=== PATIENT | male | born 1950 | race Caucasian/White ===

== ENCOUNTER 2016-06-24 13:46 | Outpatient (RCR) | payer BC ==
[~2016-06-24 13:46] MED LIST: ASPIRIN 32325 MG/TAB PO; NAPROSYN 2250 MG/TAB PO; ZOCOR
== END 2016-06-25 07:52 | disposition home or self-care (01) ==
LOC: WSPT 13:46
DX: M54.5 Low back pain (principal)

== ENCOUNTER 2016-12-02 11:28 | Emergency (ER) | payer BC ==
[~2016-12-02] VITALS: Ht 182.9 cm; Wt 76.4 kg
[2016-12-02 11:33] VITALS: TEMP 97.8
[2016-12-02] MEDS ORDERED: TAMBOCOR 1100 MG/TAB PO (11:39)
[2016-12-02] MEDS ORDERED: SPIRIVA RE2.5 MCG/Ac IH (11:40)
[2016-12-02 11:44] LABS: BASO # 0.1 (0.0-0.2); BASO % 0.5 % (0.0-2.0); EOS # 0.3 (0.0-0.7); EOS % 2.4 % (0-4.0); GRAN # 8.7 (1.4-6.5); GRAN % 71.8 % (42.2-75.2); HEMATOCRIT 42.6 % (42.0-52.0); HEMOGLOBIN 14.7 g/dl (13.5-18.0); LYMPH % 16.3 % (20.0-51.0); MEAN CELL VOLUME 92 fl (80.0-100.0); MEAN CORPUSCULAR HEMOGLOBIN 32 pg (27.0-31.0); MEAN CORPUSCULAR HGB CONC 35 g/dl (33.0-37.0); MEAN PLATELET VOLUME 9.7 fl (7.4-10.4); MONO # 1.1 (0.1-0.6); MONO % 8.7 % (1.7-9.3); PLATELET COUNT 329 K/mm3 (130-400); RED BLOOD COUNT 4.61 M/mm3 (4.20-5.60); REDCELL DISTRIBUTION WIDTH-CV 13.4 % (11.5-14.5); WHITE BLOOD COUNT 12.1 K/mm3 (4.8-10.8)
[2016-12-02 12:06] LABS: ADJUSTED CALCIUM 9.2 mg/dL (8.4-10.2); ALANINE AMINOTRANSFERASE 21 U/L (21-72); ALBUMIN 4.1 gm/dL (3.5-5.0); ALKALINE PHOSPHATASE 103 U/L (50-136); ANION GAP 11 mmol/L (7-16); BILIRUBIN,TOTAL 0.6 mg/dL (0.0-1.0); BLOOD UREA NITROGEN 11 mg/dL (9-20); CALCIUM 9.3 mg/dL (8.4-10.2); CARBON DIOXIDE 26 mmol/L (22-30); CHLORIDE 101 mmol/L (98-107); CREATININE, serum 0.79 mg/dL (0.66-1.25); GLUCOSE 91 mg/dL (74-106); LIPASE 47 U/L (23-300); POTASSIUM 4.2 mmol/L (3.4-5.0); SODIUM 138 mmol/L (137-145); TOTAL PROTEIN 7.5 gm/dL (6.4-8.2)
[2016-12-02 12:18] LABS: B-TYPE NATRIURETIC PEPTIDE 97 pg/mL (0-125); TROPONIN-I < 0.012 ng/mL (0.000-0.034)
[2016-12-02 15:27] VITALS: BP 108/62; PULSE 76
== END 2016-12-02 15:30 | disposition home or self-care (01) ==
LOC: COL.ER 11:28
PROVIDERS: Emergency Medicine
DX: R07.89 Other chest pain (principal); K21.9 Gastro-esophageal reflux disease without esophagitis; E78.5 Hyperlipidemia, unspecified; Z79.82 Long term (current) use of aspirin; Z98.890 Other specified postprocedural states
CPT/HCPCS: J7030

== ENCOUNTER → 2017-01-01 | Outpatient (CLI) | payer BC ==
[~2017-01-01] MED LIST changes: +SPIRIVA RE2.5 MCG/Ac IH; +TAMBOCOR 1100 MG/TAB PO
== END ==
LOC: MHCPAIN 07:57
DX: G89.29 Other chronic pain (principal); M47.817 Spondylosis without myelopathy or radiculopathy, lumbosacral region; M54.16 Radiculopathy, lumbar region; M79.1 Myalgia; M41.9 Scoliosis, unspecified
CPT/HCPCS: G0463

== ENCOUNTER → 2017-03-03 | Outpatient (CLI) | payer BC | LOC: MHCPAIN 10:48 | DX: G89.29 Other chronic pain (principal); M47.27 Other spondylosis with radiculopathy, lumbosacral region; M41.9 Scoliosis, unspecified; Z87.891 Personal history of nicotine dependence; Z79.82 Long term (current) use of aspirin | CPT/HCPCS: G0463 ==

== ENCOUNTER → 2017-04-07 | Outpatient (CLI) | payer BC | LOC: MHCPAIN 08:17 | DX: G89.29 Other chronic pain (principal); M47.27 Other spondylosis with radiculopathy, lumbosacral region; M41.9 Scoliosis, unspecified; M79.1 Myalgia; Z87.891 Personal history of nicotine dependence | CPT/HCPCS: G0463 ==

== ENCOUNTER → 2017-08-26 | Outpatient (CLI) | payer BC | LOC: MHCPAIN 08:01 | DX: G89.29 Other chronic pain (principal); M47.817 Spondylosis without myelopathy or radiculopathy, lumbosacral region; M53.3 Sacrococcygeal disorders, not elsewhere classified; M79.1 Myalgia; M41.9 Scoliosis, unspecified; M48.061 Spinal stenosis, lumbar region without neurogenic claudication | CPT/HCPCS: G0463 ==

== ENCOUNTER → 2018-01-21 | Outpatient (CLI) | payer BC | LOC: MHCPAIN 14:45 | DX: M47.817 Spondylosis without myelopathy or radiculopathy, lumbosacral region (principal); M54.16 Radiculopathy, lumbar region; M53.3 Sacrococcygeal disorders, not elsewhere classified; M79.1 Myalgia; M41.9 Scoliosis, unspecified | CPT/HCPCS: G0463 ==

== ENCOUNTER → 2018-01-27 | Outpatient (CLI) | payer BC | LOC: MHCPAIN 15:38 | DX: M54.12 Radiculopathy, cervical region (principal) | CPT/HCPCS: J1040 ==

== ENCOUNTER 2018-02-09 13:45 | Outpatient (RCR) | payer BC | END 2018-02-16 | disposition home or self-care (01) | LOC: WSPT | DX: M41.9 Scoliosis, unspecified (principal); Z79.82 Long term (current) use of aspirin; Z79.899 Other long term (current) drug therapy ==

== ENCOUNTER → 2018-02-25 | Outpatient (CLI) | payer BC | LOC: MHCPAIN 08:04 | DX: G89.29 Other chronic pain (principal); M47.817 Spondylosis without myelopathy or radiculopathy, lumbosacral region; M54.16 Radiculopathy, lumbar region; M53.3 Sacrococcygeal disorders, not elsewhere classified | CPT/HCPCS: G0463 ==

== ENCOUNTER 2018-03-03 15:30 | Outpatient (RCR) | payer BC | END 2018-05-05 12:24 | disposition home or self-care (01) | LOC: WSPT 15:30 | DX: M54.41 Lumbago with sciatica, right side (principal); M41.9 Scoliosis, unspecified; Z79.2 Long term (current) use of antibiotics; Z79.82 Long term (current) use of aspirin; Z79.899 Other long term (current) drug therapy ==

== ENCOUNTER → 2018-08-19 | Outpatient (CLI) | payer BC | LOC: MHCPAIN 14:14 | DX: G89.29 Other chronic pain (principal); M47.817 Spondylosis without myelopathy or radiculopathy, lumbosacral region; M54.16 Radiculopathy, lumbar region; M53.3 Sacrococcygeal disorders, not elsewhere classified; M41.9 Scoliosis, unspecified | CPT/HCPCS: G0463 ==

== ENCOUNTER → 2018-08-20 | Outpatient (CLI) | payer BC | LOC: MHCPAIN 10:05 | DX: M47.817 Spondylosis without myelopathy or radiculopathy, lumbosacral region (principal); M54.16 Radiculopathy, lumbar region | CPT/HCPCS: J1100; Q9967 ==

== ENCOUNTER → 2018-09-09 | Outpatient (CLI) | payer BC | LOC: MHCPAIN 13:39 | DX: G89.29 Other chronic pain (principal); M47.817 Spondylosis without myelopathy or radiculopathy, lumbosacral region; M54.16 Radiculopathy, lumbar region; M53.3 Sacrococcygeal disorders, not elsewhere classified; M41.9 Scoliosis, unspecified | CPT/HCPCS: G0463 ==

== ENCOUNTER 2018-09-24 10:00 | Outpatient (RCR) | payer BC | END 2018-09-28 | disposition home or self-care (01) | LOC: WSC | DX: M54.16 Radiculopathy, lumbar region (principal); M48.061 Spinal stenosis, lumbar region without neurogenic claudication; M41.85 Other forms of scoliosis, thoracolumbar region ==

== ENCOUNTER → 2018-09-24 | Outpatient (CLI) | payer BC | LOC: MHCPAIN 14:45 | DX: M47.817 Spondylosis without myelopathy or radiculopathy, lumbosacral region (principal); M54.16 Radiculopathy, lumbar region | CPT/HCPCS: J1100; Q9967 ==

== ENCOUNTER → 2018-10-07 | Outpatient (CLI) | payer BC | LOC: MHCPAIN 10:28 | DX: G89.29 Other chronic pain (principal); M47.817 Spondylosis without myelopathy or radiculopathy, lumbosacral region; M54.16 Radiculopathy, lumbar region; M53.3 Sacrococcygeal disorders, not elsewhere classified; M47.814 Spondylosis without myelopathy or radiculopathy, thoracic region | CPT/HCPCS: G0463 ==

== ENCOUNTER 2018-11-03 10:45 | Outpatient (RCR) | payer BC | END 2018-12-28 | disposition still patient (30) | LOC: WSPT | DX: M41.86 Other forms of scoliosis, lumbar region (principal) ==

== ENCOUNTER → 2018-11-18 | Outpatient (CLI) | payer BC | LOC: MHCPAIN 09:37 | DX: G89.29 Other chronic pain (principal); M47.817 Spondylosis without myelopathy or radiculopathy, lumbosacral region; M54.16 Radiculopathy, lumbar region; M53.3 Sacrococcygeal disorders, not elsewhere classified; M41.9 Scoliosis, unspecified | CPT/HCPCS: G0463 ==

== ENCOUNTER → 2018-12-17 | Outpatient (CLI) | payer BC | LOC: MHCPAIN 09:34 | DX: M47.817 Spondylosis without myelopathy or radiculopathy, lumbosacral region (principal); M54.16 Radiculopathy, lumbar region | CPT/HCPCS: Q9967 ==

== ENCOUNTER → 2018-12-23 | Outpatient (CLI) | payer BC | LOC: MHCPAIN 13:20 | DX: G89.29 Other chronic pain (principal); M47.817 Spondylosis without myelopathy or radiculopathy, lumbosacral region; M54.16 Radiculopathy, lumbar region; M53.3 Sacrococcygeal disorders, not elsewhere classified; M41.9 Scoliosis, unspecified | CPT/HCPCS: G0463 ==

== ENCOUNTER 2019-10-28 11:00 | Outpatient (RCR) | payer BC | END 2019-12-15 | disposition still patient (30) | LOC: WSPT | DX: M48.061 Spinal stenosis, lumbar region without neurogenic claudication (principal); Z98.1 Arthrodesis status ==

== ENCOUNTER → 2020-02-16 | Outpatient (CLI) | payer BC | LOC: COL.RAD 09:24 | DX: M48.062 Spinal stenosis, lumbar region with neurogenic claudication (principal); M41.86 Other forms of scoliosis, lumbar region; Z98.1 Arthrodesis status ==

== ENCOUNTER 2020-05-03 09:30 | Emergency (ER) | payer BC ==
[~2020-05-03] VITALS: Ht 182.9 cm; Wt 72.7 kg
[2020-05-03 09:34] VITALS: TEMP 97.6
[2020-05-03 10:44] LABS: BASO # 0.1 (0.0-0.2); BASO % 0.3 % (0.0-2.0); EOS # 0.1 (0.0-0.7); EOS % 0.8 % (0-4.0); GRAN # 13.6 (1.4-6.5); GRAN % 85.6 % (42.2-75.2); HEMATOCRIT 44.1 % (42.0-52.0); HEMOGLOBIN 14.8 g/dl (13.5-18.0); LYMPH # 0.9 (1.2-3.4); LYMPH % 5.9 % (20.0-51.0); MEAN CELL VOLUME 93 fl (80.0-100.0); MEAN CORPUSCULAR HEMOGLOBIN 31 pg (27.0-31.0); MEAN CORPUSCULAR HGB CONC 34 g/dl (33.0-37.0); MONO # 1.1 (0.1-0.6); MONO % 6.7 % (1.7-9.3); PLATELET COUNT 300 K/mm3 (130-400); RED BLOOD COUNT 4.72 M/mm3 (4.20-5.60); REDCELL DISTRIBUTION WIDTH-CV 13.2 % (11.5-14.5)
[2020-05-03 10:46] LABS: ALANINE AMINOTRANSFERASE 37 U/L (4-49); ALBUMIN 3.9 gm/dL (3.5-5.0); ALKALINE PHOSPHATASE 118 U/L (50-136); ANION GAP 5 mmol/L (7-16); AST,SGOT 37 U/L (15-37); BILIRUBIN,TOTAL 0.6 mg/dL (0.0-1.0); BLOOD UREA NITROGEN 14 mg/dL (9-20); CALCIUM 9.2 mg/dL (8.4-10.2); CARBON DIOXIDE 28 mmol/L (22-30); CHLORIDE 103 mmol/L (98-107); CREATININE, serum 0.89 (0.66-1.25); GLUCOSE 116 mg/dL (74-106); POTASSIUM 4.3 mmol/L (3.4-5.0); SODIUM 137 mmol/L (137-145); TOTAL PROTEIN 6.9 gm/dL (6.4-8.2)
[2020-05-03 10:49] LABS: PROTHROMBIN TIME 11.5 SECONDS (9.7-12.8)
[2020-05-03 10:52] LABS: PARTIAL THROMBOPLASTIN TIME 31.7 SECONDS (26.0-37.0)
[2020-05-03 10:59] LABS: TROPONIN-I < 0.012 ng/mL (0.000-0.035)
[2020-05-03 11:48] LABS: COLLECTION METHOD CLEAN CATCH
[2020-05-03 12:07] LABS: MUCOUS Present /lpf; PH 7 (5-8); SQUAMOUS EPITHELIAL None Seen /hpf; URINE APPEARANCE Hazy; URINE BACTERIA None Seen /hpf; URINE BILIRUBIN Negative (NEGATIVE); URINE BLOOD Negative (NEGATIVE); URINE COLOR Amber; URINE GLUCOSE Negative (NEGATIVE); URINE KETONE Trace (NEGATIVE); URINE LEUKOCYTE ESTERASE Negative (NEGATIVE); URINE NITRATE Negative (NEGATIVE); URINE PROTEIN(semi-quant) 2+ (NEGATIVE); URINE UROBILINOGEN >=4.0 mg/dL (NEGATIVE)
[2020-05-03 12:45] VITALS: BP 109/82; PULSE 73
== END 2020-05-03 12:40 | disposition home or self-care (01) ==
LOC: COL.ER 09:30
PROVIDERS: Family Medicine
DX: R42 Dizziness and giddiness (principal); Z88.1 Allergy status to other antibiotic agents; Z79.82 Long term (current) use of aspirin
CPT/HCPCS: J7030

== ENCOUNTER → 2021-09-11 | Outpatient (CLI) | payer BC | LOC: MHCPAIN 08:39 | DX: M47.896 Other spondylosis, lumbar region (principal); M53.3 Sacrococcygeal disorders, not elsewhere classified; M96.1 Postlaminectomy syndrome, not elsewhere classified | CPT/HCPCS: G0463 ==

== ENCOUNTER → 2021-09-20 | Outpatient (CLI) | payer BC | LOC: MHCPAIN 07:57 | DX: M47.817 Spondylosis without myelopathy or radiculopathy, lumbosacral region (principal); M53.3 Sacrococcygeal disorders, not elsewhere classified; M96.1 Postlaminectomy syndrome, not elsewhere classified | CPT/HCPCS: G0260; J1040; Q9967 ==

== ENCOUNTER → 2021-10-03 | Outpatient (CLI) | payer BC | LOC: MHCPAIN 07:58 | DX: M54.50 Low back pain, unspecified (principal); M53.3 Sacrococcygeal disorders, not elsewhere classified; M47.896 Other spondylosis, lumbar region; M96.1 Postlaminectomy syndrome, not elsewhere classified | CPT/HCPCS: G0463 ==

== ENCOUNTER → 2021-11-27 | Outpatient (CLI) | payer BC | LOC: MHCPAIN 13:59 | DX: M47.896 Other spondylosis, lumbar region (principal); M53.3 Sacrococcygeal disorders, not elsewhere classified; M96.1 Postlaminectomy syndrome, not elsewhere classified; G89.29 Other chronic pain | CPT/HCPCS: G0463 ==